=== PATIENT | male | born 1985 | race Caucasian/White ===

== ENCOUNTER 2019-09-30 15:29 | Emergency (ER) | payer SELFPAY ==
[~2019-09-30] VITALS: Ht 182.9 cm; Wt 120.5 kg
[2019-09-30 15:45] VITALS: BP 180/112; TEMP 99.6
[2019-09-30 18:06] VITALS: PULSE 107
== END 2019-09-30 18:06 | disposition home or self-care (01) ==
LOC: COL.ER 15:29
DX: S43.102A Unspecified dislocation of left acromioclavicular joint, initial encounter (principal); Z23 Encounter for immunization; W01.0XXA Fall on same level from slipping, tripping and stumbling without subsequent striking against object, initial encounter; X50.1XXA Overexertion from prolonged static or awkward postures, initial encounter; Y92.59 Other trade areas as the place of occurrence of the external cause